=== PATIENT | female | born 1950 | race Caucasian/White ===

== ENCOUNTER 2022-09-02 10:45 | Outpatient (CLI) | payer BC | END 2022-09-02 10:46 | disposition home or self-care (01) | LOC: CSHULT 10:45 | PROVIDERS: ATTEND Nurse Practitioner | DX: R10.31 Right lower quadrant pain (principal); G89.18 Other acute postprocedural pain ==

== ENCOUNTER → 2023-02-07 | Day surgery (SDC) | payer BC ==
[~2023-02-07] MED LIST: EPINEPHrine 1 MG/ML AMP ONE; Iopamidol 300 61% 30 ML VIAL ONE; Lidocaine 1% PF 5 ML VIAL ONE; Sodium Bicarbonate 2.5 MEQ/5 ML VIAL ONE; Sodium Chloride 0.9% 50 ML BAG ONE
== END ==
LOC: CSHRAD 12:06
PROVIDERS: ATTEND Orthopaedic Surgery
PROC: BP28YZZ Computerized Tomography (CT Scan) of Right Shoulder using Other Contrast (ICD-10-PCS; principal; 2023-02-07)
DX: M25.511 Pain in right shoulder (principal); Z98.890 Other specified postprocedural states
CPT/HCPCS: 23350; J0171; Q9967

== ENCOUNTER 2024-03-16 08:58 | Outpatient (CLI) | payer BC | END 2024-03-16 08:59 | disposition home or self-care (01) | LOC: CSHWCC 08:58 | PROVIDERS: ATTEND Nurse Practitioner Family | DX: L89.152 Pressure ulcer of sacral region, stage 2 (principal) | CPT/HCPCS: 11042; 99213; G0463 ==

== ENCOUNTER 2024-03-23 12:52 | Outpatient (CLI) | payer BC | END 2024-03-23 12:53 | disposition home or self-care (01) | LOC: CSHWCC 12:52 | PROVIDERS: ATTEND Nurse Practitioner Family | DX: L89.152 Pressure ulcer of sacral region, stage 2 (principal) | CPT/HCPCS: 99212; G0463 ==

== ENCOUNTER 2024-07-19 09:28 | Outpatient (CLI) | payer BC | END 2024-07-19 09:29 | disposition home or self-care (01) | LOC: CSHMAMMO 09:28 | PROVIDERS: ATTEND Internal Medicine | DX: Z12.31 Encounter for screening mammogram for malignant neoplasm of breast (principal); Z80.3 Family history of malignant neoplasm of breast; Z91.89 Other specified personal risk factors, not elsewhere classified | CPT/HCPCS: 77063; 77067 ==

== ENCOUNTER 2025-07-22 11:46 | Outpatient (CLI) | payer BC | END 2025-07-22 11:47 | disposition home or self-care (01) | LOC: CSHMAMMO 11:46 | PROVIDERS: ATTEND Internal Medicine | DX: Z12.31 Encounter for screening mammogram for malignant neoplasm of breast (principal) | CPT/HCPCS: 77063; 77067 ==